=== PATIENT | male | born 1990 | race Caucasian/White ===

== ENCOUNTER → 2020-09-10 08:32 | Outpatient (CLI) | payer OTHER, SELFPAY ==
--- NOTE | 2020-09-10 | DI.MRI.S_ITS ---
PROCEDURE: MR SHOULDER RT W CON INDICATIONS: PAIN IN RIGHT SHOULDER TECHNIQUE: After the administration of 12 mL of dilute intra-articular Gadolinium contrast, oblique coronal T1 and T2 spin echo with fat saturation, oblique sagittal T1 spin echo with and without fat saturation, oblique sagittal T2 fast spin echo with fat saturation, axial T1 spin echo with fat saturation through the shoulder. COMPARISON: None. FINDINGS: Rotator cuff: Supraspinatus mild tendinopathy is present. There is low-grade bursal surface fraying although no discrete tear identified. Infraspinatus tendon appears intact although there is low-grade bursal surface fraying. Teres minor tendon appears intact. Subscapularis tendon appears intact. No atrophy of the rotator cuff muscles. Mild fatty infiltration of the infraspinatus muscle.. Bones and bursae: No bone marrow contusions or fractures. Mild acromioclavicular joint degeneration. Acromion demonstrates conventional anatomy, without an os acromiale. There is slight lateral downsloping appearance of the acromion. Mild subacromial-subdeltoid bursitis. Capsule and soft tissues: Labrum: Incident little sublabral foramen. There is also Nancy complex morphology with thickened appearance of the middle glenohumeral ligament and diminutive appearance of the anterosuperior labrum. Biceps: Long head of the biceps tendon intact. Rotator interval: Normal signal intensity. Coracohumeral ligament: Intact. IMPRESSION: Mild supraspinatus tendinopathy. Low-grade bursal surface fraying of the supraspinatus and infraspinatus tendons. Mild subacromial-subdeltoid bursitis. Slight lateral downsloping appearance of the acromion. Dictated by: Fracisco Zaidi M.D. on 09/10/2020 at 10:48 Approved by: Fracisco Zaidi M.D. on 09/10/2020 at 11:36
--- NOTE | 2020-09-10 | DI.RAD.S_ITS ---
PROCEDURE: [place] SHOULDER INJECTION MR/CT RT INDICATIONS: PAIN IN RIGHT SHOULDER COMPARISON: [facility], MR, MR SHOULDER RT W CON, 09/10/2020, 9:29. TECHNIQUE: The indications, alternatives, benefits, risks, and complications of the procedure were explained to the patient. Written informed consent was obtained and placed in the chart. The shoulder was examined fluoroscopically and a site for needle placement chosen for entry into the glenohumeral joint from an anterior approach. The skin was prepped and draped in a sterile fashion, and 1% lidocaine infiltrated from skin down to joint capsule. A spinal needle was inserted into the glenohumeral joint, and a small amount of iodinated contrast media injected to confirm intra-articular placement of the needle tip. This was followed by approximately 12 mL dilute solution of a gadolinium containing MR contrast agent. The needle was removed and a dressing was applied. The patient was given postprocedural instructions and sent to the MR suite for MR imaging. FINDINGS: A single fluoroscopic spot image demonstrates intra-articular location of injected iodinated contrast. IMPRESSION: Successful fluoroscopically guided administration of dilute Gadolinium solution into the shoulder joint for MR arthrogram. Dictated by: Francisco Monteiro M.D. on 09/10/2020 at 14:48 Approved by: Francisco Montiero M.D. on 09/10/2020 at 14:49
== END ==
PROVIDERS: PCP Student in an Organized Health Care Education/Training Program; Referring Provider Student in an Organized Health Care Education/Training Program; Visit Provider Student in an Organized Health Care Education/Training Program
DX: M25.511 Pain in right shoulder (principal); M75.51 Bursitis of right shoulder
CPT/HCPCS: 23350; 73222; 77002